=== PATIENT | female | born 1955 | race Hispanic/Latino ===

== ENCOUNTER → 2018-01-03 | Outpatient (CLI) | payer OTHER, MEDICARE ==
[~2018-01-03] MED LIST: BISA5TAB12 PO; CALC-866 PO; GLUC-29 PO; IBUP-2353 PO; MULT-1203 PO; NAPR500T6 PO; OMEP40CA37 PO; SUCR1TAB2 PO; VENL-53 PO
== END | disposition home or self-care (01) ==
LOC: RAH 08:18
PROVIDERS: ATTEND Internal Medicine Gastroenterology
DX: N28.1 Cyst of kidney, acquired (principal); K76.0 Fatty (change of) liver, not elsewhere classified
CPT/HCPCS: 76700

== ENCOUNTER 2018-01-19 09:16 | Day surgery (SDC) | payer OTHER, MEDICARE ==
[~2018-01-19 09:16] MED LIST changes: -BISA5TAB12 PO; -CALC-866 PO; -GLUC-29 PO; -IBUP-2353 PO; -MULT-1203 PO; -NAPR500T6 PO; -OMEP40CA37 PO; +SODIUM CHLORIDE 0.9% 1000ML 1,000 ML IV ONE; -SUCR1TAB2 PO; -VENL-53 PO
[2018-01-19] MEDS ORDERED: VENL-53 PO (10:47)
[2018-01-19] MEDS ORDERED: MULT-1203 PO (10:47)
[2018-01-19] MEDS ORDERED: BISA5TAB12 PO (10:47)
[2018-01-19] MEDS ORDERED: IBUP-2353 PO (10:47)
[2018-01-19] MEDS ORDERED: CALC-866 PO (10:47)
[2018-01-19] MEDS ORDERED: SUCR1TAB2 PO (10:47)
[2018-01-19] MEDS ORDERED: OMEP40CA37 PO (10:47)
[2018-01-19] MEDS ORDERED: NAPR500T6 PO (10:47)
[2018-01-19] MEDS ORDERED: GLUC-29 PO (10:47)
[2018-01-19] MEDS ORDERED: PROPOFOL 10 MG/ML 20ML VIAL IV ONE (10:55)
[2018-01-19 11:00] VITALS: BP 100/56
== END 2018-01-19 12:00 | disposition home or self-care (01) ==
LOC: DAH 09:16
PROVIDERS: ATTEND Internal Medicine Gastroenterology
DX: R10.13 Epigastric pain (principal); E78.5 Hyperlipidemia, unspecified; G47.33 Obstructive sleep apnea (adult) (pediatric); D64.89 Other specified anemias; M19.90 Unspecified osteoarthritis, unspecified site; Z79.899 Other long term (current) drug therapy; Z98.890 Other specified postprocedural states
CPT/HCPCS: 43235; A4606; J2704; J7030

== ENCOUNTER → 2019-05-07 | Outpatient (CLI) | payer OTHER, MEDICARE ==
[~2019-05-07] MED LIST changes: +BISA5TAB12 PO; +CALC-866 PO; +GLUC-29 PO; +IBUP-2353 PO; +MULT-1203 PO; +NAPR500T6 PO; +OMEP40CA37 PO; -SODIUM CHLORIDE 0.9% 1000ML 1,000 ML IV ONE; +SUCR1TAB2 PO; +VENL-53 PO
== END | disposition home or self-care (01) ==
LOC: RAH 07:41
PROVIDERS: ATTEND Internal Medicine Gastroenterology
DX: K76.0 Fatty (change of) liver, not elsewhere classified (principal); N28.1 Cyst of kidney, acquired
CPT/HCPCS: 76700

== ENCOUNTER → 2022-07-09 | Outpatient (CLI) | payer MEDICARE ==
[~2022-07-09] MED LIST changes: -IBUP-2353 PO; +IBUP-2784 PO; +OMEP40CA21 PO; -OMEP40CA37 PO
== END | disposition home or self-care (01) ==
LOC: SHCH 12:55
PROVIDERS: ATTEND Internal Medicine Cardiovascular Disease
DX: I87.2 Venous insufficiency (chronic) (peripheral) (principal)
CPT/HCPCS: 93970